=== PATIENT | female | born 2000 | race Two or more races ===

== ENCOUNTER 2023-11-28 11:35 | Emergency (ER) | payer SELFPAY ==
[2023-11-28 11:40] VITALS: BP 120/85; PULSE 99; RESP 18; TEMP 36.8; O2SAT 96; BMI 24.8
[2023-11-28 12:09] LABS: Hematocrit 35.7 % (36.0-48.0); Hemoglobin 12.4 g/dL (12.0-16.0); Immature Granulocytes Abs Auto 0.02 10^3/uL (0.00-0.03); Immature Granulocytes Pct Auto 0.3 % (0.0-0.5); Lymphocytes Absolute Auto 1.4 10^3/uL (1.2-3.8); Lymphocytes Percent Auto 19.9 % (20.5-60.0); Mean Corpuscular HGB Conc 34.7 g/dL (29.9-35.2); Mean Corpuscular Hemoglobin 30.6 pg (26.7-34.0); Mean Corpuscular Volume 88.1 fL (81.0-99.0); Mean Platelet Volume 10.7 fL (9.5-13.5); Monocytes Absolute Auto 0.3 10^3/uL (0.3-0.8); Monocytes Percent Auto 4.2 % (1.7-12.0); Neutrophils Absolute Auto 5.2 10^3/uL (1.4-6.5); Neutrophils Percent Auto 75.6 % (43.0-75.0); Platelet Count 176 10^3/uL (150-450); Red Blood Count 4.05 10^6/uL (4.20-5.40); Red Cell Distribution Width 11.9 % (11.0-15.0); White Blood Count 6.8 10^3/uL (4.0-11.0)
[2023-11-28] MEDS: METOCLOPRAMIDE HCL 10 MG/2 ML VIAL IVP (12:10)
[2023-11-28] MEDS: 0.9 % SODIUM CHLORIDE 1,000 ML 999 ML IV (12:10)
[2023-11-28 12:20] LABS: Bilirubin Urine NEGATIVE (NEGATIVE); Blood Urine NEGATIVE (NEGATIVE); Clarity Urine CLEAR (CLEAR); Color Urine DK. YELLOW (YELLOW); Glucose Urine UA NEGATIVE (NEGATIVE); Ketones Urine TRACE mg/dL (NEGATIVE); Leukocyte Esterase Urine NEGATIVE (NEGATIVE); Nitrite Urine NEGATIVE (NEGATIVE); Protein Urine 30 mg/dL (NEG/TRACE); Specific Gravity Urine >=1.030 (1.005-1.025); Urobilinogen Urine 0.2 EU/dL (0.2-1.0)
[2023-11-28 12:22] LABS: Alanine Aminotransferase 17 U/L (14-59); Albumin Globulin Ratio 1.1; Albumin Level 4.1 g/dL (3.4-5.0); Alkaline Phosphatase 57 U/L (46-116); Anion Gap 12.8; Aspartate Amino Transferase 11 U/L (15-37); BUN Creatinine Ratio 14.1; Bilirubin Total 0.7 mg/dL (0.2-1.0); Calcium 9.2 mg/dL (8.5-10.1); Carbon Dioxide 24.3 mmol/L (21.0-32.0); Chloride 105 mmol/L (98-107); Estimated GFR (African America >60 (>=60); Estimated GFR (Non-African Ame >60 (>=60); Globulin 3.9 g/dL; Glucose 117 mg/dL (74-106); Potassium 3.1 mmol/L (3.5-5.1); Sodium 139 mmol/L (136-145)
[2023-11-28 12:23] LABS: Urine Microscopic Indicated YES
[2023-11-28 12:23] LABS: HCG Qualitative NEGATIVE (NEGATIVE)
--- NOTE | 2023-11-28 12:56 | ED.GENADUL1 ---
HPI - General Adult General Chief complaint: Abdominal Pain Stated complaint: VOMITING Time Seen by Provider: 11/28/23 11:41 Source: patient Mode of arrival: walk-in Limitations: no limitations History of Present Illness HPI narrative: Patient sent from [facility] detox facility. The patient is having nausea and refusing to eat ort drink despite getting Zofran regularly over the last 3 days. She just checked in there 3 days ago and last use of Fentanyl was 11/25/23. She complains of nausea, generalized shakiness and feeling like I want to crawl out of my skin . The nurse at the facility told me that they have been giving the patient suboxone and librium tapers along with the zofran. She apparently refused phenergan. They are concerned that she is dehydrated. Related Data Allergies Allergy/AdvReac Type Severity Reaction Status Date / Time No Known Drug Allergies Allergy Verified 11/28/23 11:44 [facility] Social History Smoking status: Current every day smoker Exam Narrative Exam Narrative: Nurses notes and vital signs reviewed and patient is not hypoxic. afebrile General: Well-appearing and in no apparent distress. Skin: Warm, dry, no pallor noted. No rash. Head: Normocephalic, atraumatic. Neck: Supple, non-tender. Eye: Pupils are equal, round and EOMI. No scleral icterus. Ears, Nose, Mouth, and Throat: Oral mucosa is dry Cardiovascular: Tachcyardia. Respiratory: No accessory muscle use or respiratory distress. Lungs are clear to auscultation, no wheezing, rales or rhonchi Back: No CVA tenderness Musculoskeletal: normal ROM, no calf or popliteal tenderness, no lower extremity edema/swelling GI: Abdomen is soft, non-distended. Normal bowel sounds. Suprapubic tenderness to palpation. No rebound, guarding, or rigidity noted. Neurological: A&O x4. No cranial nerve dysfunction observed. No truncal ataxia. Moves all extremities. Sensation intact. Psychiatric: Cooperative and interactive. Normal mood and affect. Constitutional Vital Signs, click to edit/add: Last Vital Signs Temp 98.2 F 11/28/23 11:40 Pulse 99 H 11/28/23 11:40 Resp 18 11/28/23 11:40 BP 120/85 11/28/23 11:40 Pulse Ox 96 11/28/23 11:40 O2 Del Method Room Air 11/28/23 11:40 Course Vital Signs Vital signs: Vital Signs Temperature 98.2 F 11/28/23 11:40 Pulse Rate 99 H 11/28/23 11:40 Respiratory Rate 18 11/28/23 11:40 Blood Pressure 120/85 11/28/23 11:40 Pulse Oximetry 96 11/28/23 11:40 Oxygen Delivery Method Room Air 11/28/23 11:40 Temperature 98.2 F 11/28/23 11:40 Pulse Rate 99 H 11/28/23 11:40 Respiratory Rate 18 11/28/23 11:40 Blood Pressure 120/85 11/28/23 11:40 Pulse Oximetry 96 11/28/23 11:40 Oxygen Delivery Method Room Air 11/28/23 11:40 Medical Decision Making MDM Narrative Medical decision making narrative: Peripheral IV established and blood drawn and sent for testing. Urine also sent for testing. The patient received a liter of normal saline IV fluid and IV Reglan. CBC with normal WBC. K low at 3.1. UA and remainder of CMP unremarkable. On reassessment, her nausea had improved. She still had the sensation as if things were crawling out of her skin but it was much more tolerable. She was discharged back to [facility]. I offered to prescribe Phenergan suppositories to take for the nausea but she declined. Lab Data Lab results reviewed: Yes I reviewed the patient's lab results Labs: Lab Results 11/28/23 11/28/23 Range/Units 11:50 12:10 WBC 6.8 (4.0-11.0) 10^3/uL RBC 4.05 L (4.20-5.40) 10^6/uL Hgb 12.4 (12.0-16.0) g/dL Hct 35.7 L (36.0-48.0) % MCV 88.1 (81.0-99.0) fL MCH 30.6 (26.7-34.0) pg MCHC 34.7 (29.9-35.2) g/dL RDW 11.9 (11.0-15.0) % Plt Count 176 (150-450) 10^3/uL MPV 10.7 (9.5-13.5) fL Neut % (Auto) 75.6 H (43.0-75.0) % Lymph % (Auto) 19.9 L (20.5-60.0) % [place] % (Auto) 4.2 (1.7-12.0) % Eos % (Auto) 0.0 L (0.9-7.0) % Baso % (Auto) 0.0 L (0.2-2.0) % Neut # (Auto) 5.2 (1.4-6.5) 10^3/uL Lymph # (Auto) 1.4 (1.2-3.8) 10^3/uL [place] # (Auto) 0.3 (0.3-0.8) 10^3/uL Eos # (Auto) 0.0 (0.0-0.7) 10^3/uL Baso # (Auto) 0.0 (0.0-0.1) 10^3/uL Abs Immat Gran (auto) 0.02 (0.00-0.03) 10^3/uL Imm/Tot Granulo (auto) 0.3 (0.0-0.5) % Sodium 139 (136-145) mmol/L Potassium 3.1 L (3.5-5.1) mmol/L Chloride 105 (98-107) mmol/L Carbon Dioxide 24.3 (21.0-32.0) mmol/L Anion Gap 12.8 BUN 11.0 (7.0-18.0) mg/dL Creatinine 0.78 (0.55-1.02) mg/dL Est GFR ( Amer) >60 (>=60) Est GFR (Non-Af Amer) >60 (>=60) BUN/Creatinine Ratio 14.1 Glucose 117 H (74-106) mg/dL Calcium 9.2 (8.5-10.1) mg/dL Total Bilirubin 0.7 (0.2-1.0) mg/dL AST 11 L (15-37) U/L ALT 17 (14-59) U/L Alkaline Phosphatase 57 (46-116) U/L Total Protein 8.0 (6.4-8.2) g/dL Albumin 4.1 (3.4-5.0) g/dL Globulin 3.9 g/dL Albumin/Globulin Ratio 1.1 Serum HCG, Qual Negative (NEGATIVE) Urine Color Dk. yellow (YELLOW) Urine Clarity Clear (CLEAR) Urine pH 6.0 (5.0-9.0) Ur Specific [place] >=1.030 A (1.005-1.025) Urine Protein 30 A (NEG/TRACE) mg/dL Urine Glucose (UA) Negative (NEGATIVE) mg/dL Urine Ketones Trace A (NEGATIVE) mg/dL Urine Occult Blood Negative (NEGATIVE) Urine Nitrite Negative (NEGATIVE) Urine Bilirubin Negative (NEGATIVE) Urine Urobilinogen 0.2 (0.2-1.0) EU/dL Ur Leukocyte Esterase Negative (NEGATIVE) Discharge Plan Discharge Chief Complaint: Abdominal Pain Clinical Impression: Nausea & vomiting, Dehydration, Acute hypokalemia Patient Disposition: Home, Self-Care Time of Disposition Decision: 13:01 Instructions: Dehydration (ED), Acute Nausea and Vomiting (ED) Stand Alone Forms: Portal Instructions Referrals: Physician,Non-Staff, MD [Primary Care Provider] - 1 week
[2023-11-28 13:11] LABS: Bacteria Urine TRACE #/HPF (NONE SEEN); RBC Urine NONE SEEN #/HPF (0-2); WBC Urine NONE SEEN #/HPF (NONE SEEN)
[2023-11-28 13:12] LABS: Amorphous Sediment Urine MANY; Cast Seen? NONE SEEN #/LPF (NONE SEEN); Crystals Seen? Seen #/HPF (None Seen); Mucus Urine TRACE (NONE SEEN); Squamous Epithelial Cell Urine FEW #/LPF (NONE/RARE); Urine Culture Indicated NO
== END 2023-11-28 13:27 | disposition home or self-care (01) ==
PROVIDERS: Emergency Provider Emergency Medicine
DX: E86.0 Dehydration (principal); E87.6 Hypokalemia; R11.2 Nausea with vomiting, unspecified; F17.210 Nicotine dependence, cigarettes, uncomplicated
CPT/HCPCS: 36415; 80053; 81001; 84703; 85025; 96361; 96374; 99284; J2765